=== PATIENT | male | born 1990 | race Caucasian/White ===

== ENCOUNTER 2017-07-25 16:37 | Emergency (ER) | payer BC ==
--- NOTE | 2017-07-25 17:06 | EDM.PDOC ---
ED HPI GENERAL MEDICAL PROBLEM - General Chief Complaint: Respiratory Problem Stated Complaint: SICK Time Seen by Provider: 07/25/17 17:01 Source of Information: Reports: Patient History Limitations: Reports: No Limitations - History of Present Illness INITIAL COMMENTS - FREE TEXT/NARRATIVE: HISTORY AND PHYSICAL: History of present illness: Patient is a 27-year-old male who presents to the emergency room with bilateral ear pain, sore throat and dry nonproductive cough times and weak. He states he has been using [id number] Mucinex and Tylenol without much relief. He denies any fever, chills, chest pain or shortness of breath. He denies any abdominal pain, nausea, vomiting, diarrhea or constipation. He is a daily smoker , 1 pack per day. Not received the influenza vaccine. Review of systems: As per history of present illness and below otherwise all systems reviewed and negative. Past medical history: As per history of present illness and as reviewed below otherwise noncontributory. Surgical history: As per history of present illness and as reviewed below otherwise noncontributory. Social history: No reported history of drug or alcohol abuse. Family history: As per history of present illness and as reviewed below otherwise noncontributory. Physical exam: General: Well-developed and well-nourished 27-year-old male. Alert and oriented. Nontoxic appearing and in no acute distress. HEENT: Atraumatic, normocephalic, pupils reactive, negative for conjunctival pallor or scleral icterus, mucous membranes moist, bilateral tympanic membranes are pinkish with dull light reflex, no bulging. Erythema noted to the posterior oropharynx without exudate, no patellar shifting. No lymphadenopathy, neck supple, nontender, trachea midline. Maxillary sinus tenderness bilaterally. Sinus pressure with bending his head forward. No drooling or trismus. No mastoid tenderness. Lungs: Clear to auscultation, breath sounds equal bilaterally, chest nontender. Dry nonproductive cough noted. Heart: S1S2, regular rate and rhythm Abdomen: Soft, nondistended, nontender. Negative for masses or hepatosplenomegaly. Negative for costovertebral tenderness. Pelvis: Stable nontender. Genitourinary: Deferred. Rectal: Deferred. Extremities: Atraumatic, negative for cords or calf pain. Neurovascular unremarkable. Neuro: Awake, alert, oriented. Cranial nerves II through XII unremarkable. Cerebellum unremarkable. Motor and sensory unremarkable throughout. Exam nonfocal. Notes: Will treat patient with Augmentin twice a day 10 days. Phenergan with codeine for nighttime use. Medication education was given. Encouraged him to quit smoking. Patient will follow up with his primary care provider next week. He denies any further questions at this time. Diagnostics: [] Therapeutics: [] Impression: Sinusitis Bronchitis Plan: 1. Please stop smoking. 2. Take your antibiotic as prescribed. Phenergan with codeine has been given to you for cough and occasional will cause drowsiness do not take it while driving her needing to be functioning outside of the house. You may take Tylenol and/or ibuprofen as needed for pain and fever management. 3. Follow-up with your primary caregiver next week. Return to the ED as needed and as discussed. Definitive disposition and diagnosis as appropriate pending reevaluation and review of above. Duration: Week(s): Generalized Pain Score (Numeric/FACES): 5 - Related Data Allergies Allergy/AdvReac Type Severity Reaction Status Date / Time No Known Allergies Allergy Verified 07/25/17 16:53 Past Medical History - Past Health History Medical/Surgical History: Denies Medical/Surgical History - Infectious Disease History Infectious Disease History: Reports: Chicken Pox Social & Family History - Family History Family Medical History: Noncontributory - Tobacco Use Smoking Status *Q: Current Every Day Smoker Years of Tobacco use: 12 Packs/Tins Daily: 1.5 - Caffeine Use Caffeine Use: Reports: Coffee, Energy Drinks, Soda - Alcohol Use Days Per Week of Alcohol Use: 0 - Recreational Drug Use Recreational Drug Use: No ED ROS GENERAL - Review of Systems Review Of Systems: ROS reveals no pertinent complaints other than HPI. ED EXAM, GENERAL - Physical Exam Exam: See Below (See dictation) Course - Vital Signs Last Recorded V/S: Last Vital Signs Temp 98.8 F 07/25/17 16:50 Pulse 101 H 07/25/17 16:50 Resp 18 07/25/17 16:50 BP 122/76 07/25/17 16:50 Pulse Ox 97 07/25/17 16:50 Departure - Departure Time of Disposition: 17:06 Disposition: Home, Self-Care 01 Clinical Impression: Bronchitis Sinusitis Qualifiers: Sinusitis location: maxillary Chronicity: acute Recurrence: non-recurrent Qualified Code(s): J01.00 - Acute maxillary sinusitis, unspecified - Discharge Information Instructions: Sinusitis, Adult, [id number], Acute Bronchitis, Adult, Easy-to- Read Referrals: PCP,None [Primary Care Provider] - Additional Instructions: The following information is given to patients seen in the emergency department who are being discharged to home. This information is to outline your options for follow-up care. We provide all patients seen in our emergency department with a follow-up referral. The need for follow-up, as well as the timing and circumstances, are variable depending upon the specifics of your emergency department visit. If you don't have a primary care physician on staff, we will provide you with a referral. We always advise you to contact your personal physician following an emergency department visit to inform them of the circumstance of the visit and for follow-up with them and/or the need for any referrals to a consulting specialist. The emergency department will also refer you to a specialist when appropriate. This referral assures that you have the opportunity for follow-up care with a specialist. All of these measure are taken in an effort to provide you with optimal care, which includes your follow-up. Under all circumstances we always encourage you to contact your private physician who remains a resource for coordinating your care. When calling for follow-up care, please make the office aware that this follow-up is from your recent emergency room visit. If for any reason you are refused follow-up, please contact the [facility] at and asked to speak to the emergency department charge nurse. [facility] [address] [place] [id number] 1. Please stop smoking. 2. Take your antibiotic as prescribed. Phenergan with codeine has been given to you for cough and occasional will cause drowsiness do not take it while driving her needing to be functioning outside of the house. You may take Tylenol and/or ibuprofen as needed for pain and fever management. 3. Follow-up with your primary caregiver next week. Return to the ED as needed and as discussed.
== END 2017-07-25 17:35 | disposition home or self-care (01) ==
LOC: MW.ED 16:37
DX: J40 Bronchitis, not specified as acute or chronic (principal); J01.00 Acute maxillary sinusitis, unspecified; F17.210 Nicotine dependence, cigarettes, uncomplicated
CPT/HCPCS: 99282; 99283

== ENCOUNTER 2018-10-29 19:42 | Day surgery (SDC) | payer BC ==
[~2018-10-29 19:42] MED LIST: cefOXitin 1 GM in Premix Bag 1 BAG IV SCH
[2018-10-29] MEDS ORDERED: Sodium Chloride 0.9% 1,000 ML IV ONE (19:48)
[2018-10-29] MEDS ORDERED: Sodium Chloride 0.9% 2.5 ML Syringe FLUSH PRN (19:48)
[2018-10-29] MEDS ORDERED: Sodium Chloride 0.9% 10 ML Syringe FLUSH PRN (19:48)
[2018-10-29] MEDS ORDERED: Aspirin 325 MG Tab PO ONE (19:50)
--- NOTE | 2018-10-29 19:50 | EDM.PDOC ---
ED HPI GENERAL MEDICAL PROBLEM - General Chief Complaint: Fever Stated Complaint: fever stomach & back pain Time Seen by Provider: 10/29/18 19:45 - History of Present Illness INITIAL COMMENTS - FREE TEXT/NARRATIVE: HISTORY AND PHYSICAL: History of present illness: Patient's a 28-year-old white male presents with concern of intermittent fever and lower abdominal pain 3 days he denies diarrhea denies trauma denies any chronic medical problems. Review of systems: As per history of present illness and below otherwise all systems reviewed and negative. Past medical history: As per history of present illness and as reviewed below otherwise noncontributory. Surgical history: As per history of present illness and as reviewed below otherwise noncontributory. Social history: No reported history of drug or alcohol abuse. Family history: As per history of present illness and as reviewed below otherwise noncontributory. Physical exam: HEENT: Atraumatic, normocephalic, pupils reactive, negative for conjunctival pallor or scleral icterus, mucous membranes moist, throat clear, neck supple, nontender, trachea midline. Lungs: Clear to auscultation, breath sounds equal bilaterally, chest nontender. Heart: S1S2, regular, negative for clicks, rubs, or JVD. Abdomen: Soft, nondistended, nonlocalized lower abdominal tenderness to deep palpation no rebound no guarding. Negative for masses or hepatosplenomegaly. Negative for costovertebral tenderness. Pelvis: Stable nontender. Genitourinary: Deferred. Rectal: Deferred. Extremities: Atraumatic, negative for cords or calf pain. Neurovascular unremarkable. Neuro: Awake, alert, oriented. Cranial nerves II through XII unremarkable. Cerebellum unremarkable. Motor and sensory unremarkable throughout. Exam nonfocal. Diagnostics: CBC CMP and lipase UA chest x-ray CT abdomen and pelvis Therapeutics: Saline 1 L bolus Tylenol 1 g by mouth Impression: #1 fever #2 abdominal pain Definitive disposition and diagnosis as appropriate pending reevaluation and review of above. - Related Data Allergies Allergy/AdvReac Type Severity Reaction Status Date / Time No Known Allergies Allergy Verified 10/29/18 19:50 Home Meds: Home Meds . [No Known Home Meds] 10/29/18 [History] Past Medical History - Past Health History Medical/Surgical History: Denies Medical/Surgical History - Infectious Disease History Infectious Disease History: Reports: Chicken Pox Social & Family History - Family History Family Medical History: Noncontributory - Caffeine Use Caffeine Use: Reports: Coffee, Energy Drinks, Soda ED ROS GENERAL - Review of Systems Review Of Systems: ROS reveals no pertinent complaints other than HPI. ED EXAM, GENERAL - Physical Exam Exam: See Below (See dictation) Course - Vital Signs Last Recorded V/S: Last Vital Signs Temp 38.6 C H 10/29/18 20:00 Pulse 112 H 10/29/18 19:50 Resp 18 10/29/18 19:50 BP 134/75 10/29/18 19:50 Pulse Ox 96 10/29/18 19:50 - Orders/Labs/Meds Orders: Active Orders 24 hr Category Date Time Status COMPREHENSIVE METABOLIC PN,CMP [CHEM] Stat Lab 10/29/18 19:47 Ordered CULTURE URINE [RM] Stat Lab 10/29/18 19:40 Received LIPASE [CHEM] Stat Lab 10/29/18 19:47 Ordered Sodium Chloride 0.9% [Normal Saline] 1,000 ml Med 10/29/18 19:48 Active IV STAT Sodium Chloride 0.9% [Saline Flush] Med 10/29/18 19:48 Active 10 ml FLUSH ASDIRECTED PRN Sodium Chloride 0.9% [Saline Flush] Med 10/29/18 19:48 Active 2.5 ml FLUSH ASDIRECTED PRN Saline Lock Insert [OM.PC] Stat Oth 10/29/18 19:47 Ordered Medication Orders Sodium Chloride (Normal Saline) 1,000 mls @ 999 mls/hr IV STAT ONE Stop: 10/29/18 20:48 Last Admin: 10/29/18 20:00 Dose: 999 mls/hr Sodium Chloride (Saline Flush) 10 ml FLUSH ASDIRECTED PRN PRN Reason: Keep Vein Open Sodium Chloride (Saline Flush) 2.5 ml FLUSH ASDIRECTED PRN PRN Reason: Keep Vein Open Labs: Laboratory Tests 10/29/18 10/29/18 10/29/18 Range/Units 19:40 19:47 19:50 WBC 12.19 H (4.0-11.0) K/uL RBC 4.68 (4.50-5.90) M/uL Hgb 14.7 (13.0-17.0) g/dL Hct 42.2 (38.0-50.0) % MCV 90.2 (80.0-98.0) fL MCH 31.4 (27.0-32.0) pg MCHC 34.8 (31.0-37.0) g/dL RDW Std Deviation 40.7 (28.0-62.0) fl RDW Coeff of Rebecca 12 (11.0-15.0) % Plt Count 235 (150-400) K/uL MPV 10.20 (7.40-12.00) fL Neut % (Auto) 87.9 H (48.0-80.0) % Lymph % (Auto) 7.1 L (16.0-40.0) % [place] % (Auto) 4.1 (0.0-15.0) % Eos % (Auto) 0.7 (0.0-7.0) % Baso % (Auto) 0.2 (0.0-1.5) % Neut # (Auto) 10.7 H (1.4-5.7) K/uL Lymph # (Auto) 0.9 (0.6-2.4) K/uL [place] # (Auto) 0.5 (0.0-0.8) K/uL Eos # (Auto) 0.1 (0.0-0.7) K/uL Baso # (Auto) 0.0 (0.0-0.1) K/uL Nucleated RBC % 0.0 /100WBC Nucleated RBCs # 0 K/uL INR 1.02 Urine Color DARK YELLOW Urine Appearance CLEAR Urine pH 6.0 (5.0-8.0) Ur Specific [place] 1.025 (1.001-1.035) Urine Protein TRACE H (NEGATIVE) mg/dL Urine Glucose (UA) NEGATIVE (NEGATIVE) mg/dL Urine Ketones 15 H (NEGATIVE) mg/dL Urine Occult Blood NEGATIVE (NEGATIVE) Urine Nitrite NEGATIVE (NEGATIVE) Urine Bilirubin SMALL H (NEGATIVE) Urine Ictotest POSITIVE Urine Urobilinogen 1.0 (<2.0) EU/dL Ur Leukocyte Esterase TRACE H (NEGATIVE) Urine RBC 0-1 (0-2/HPF) Urine WBC 5-8 (0-5/HPF) Ur Epithelial Cells OCCASIONAL (NONE-FEW) Urine Bacteria FEW (NEGATIVE) Urine Mucus LIGHT (NONE-MOD) Meds: Medications Generic Name Dose Route Start Last Admin Trade Name Freq PRN Reason Stop Dose Admin Sodium Chloride 1,000 mls @ 999 mls/hr 10/29/18 19:48 10/29/18 20:00 Normal Saline IV 10/29/18 20:48 999 mls/hr STAT ONE Administration Sodium Chloride 10 ml 10/29/18 19:48 Saline Flush FLUSH ASDIRECTED PRN Keep Vein Open Sodium Chloride 2.5 ml 10/29/18 19:48 Saline Flush FLUSH ASDIRECTED PRN Keep Vein Open Discontinued Medications Generic Name Dose Route Start Last Admin Trade Name Freq PRN Reason Stop Dose Admin Acetaminophen 1,000 mg 10/29/18 19:56 10/29/18 20:00 Tylenol Extra Strength PO 10/29/18 19:57 1,000 mg ONETIME ONE Administration Aspirin 975 mg 10/29/18 19:50 Aspirin PO 10/29/18 19:51 ONETIME ONE Departure - Departure Time of Disposition: 20:41 Disposition: Admitted As Inpatient 65 Condition: Good Clinical Impression: Appendicitis - Discharge Information Referrals: PCP,None [Primary Care Provider] - Forms: ED Department Discharge - My Orders Last 24 Hours: My Active Orders 10/29/18 19:40 CULTURE URINE [RM] Stat 10/29/18 19:47 COMPREHENSIVE METABOLIC PN,CMP [CHEM] Stat LIPASE [CHEM] Stat Saline Lock Insert [OM.PC] Stat 10/29/18 19:48 Sodium Chloride 0.9% [Normal Saline] 1,000 ml IV STAT Sodium Chloride 0.9% [Saline Flush] 10 ml FLUSH ASDIRECTED PRN Sodium Chloride 0.9% [Saline Flush] 2.5 ml FLUSH ASDIRECTED PRN - Assessment/Plan Last 24 Hours: My Active Orders 10/29/18 19:40 CULTURE URINE [RM] Stat 10/29/18 19:47 COMPREHENSIVE METABOLIC PN,CMP [CHEM] Stat LIPASE [CHEM] Stat Saline Lock Insert [OM.PC] Stat 10/29/18 19:48 Sodium Chloride 0.9% [Normal Saline] 1,000 ml IV STAT Sodium Chloride 0.9% [Saline Flush] 10 ml FLUSH ASDIRECTED PRN Sodium Chloride 0.9% [Saline Flush] 2.5 ml FLUSH ASDIRECTED PRN
[2018-10-29] MEDS ORDERED: Acetaminophen 500 MG Tab PO ONE (19:56)
--- NOTE | 2018-10-29 20:31 | CR ---
Indication: Fever Technique: Chest 1 view Comparison: None Findings/Impression: Cardiovascular and mediastinum: Heart size and vasculature are normal in caliber and appearance. Mediastinum is within normal limits. Lungs and pleural space: Lungs are clear. No sign of infiltrate or mass. No sign of pleural effusion. No pneumothorax. Bones and soft tissues: No significant findings. Dictated by Marisel Gomez MD @ Oct 29 2018 8:28PM Signed by Dr. Marisel Gomez @ Oct 29 2018 8:29PM
[2018-10-29 20:37] LABS: CHLORIDE,CL 100 mmol/L (98-107); SODIUM,NA 135 mmol/L (136-148)
--- NOTE | 2018-10-29 20:39 | CT ---
INDICATION: back and abdominal pain CT ABDOMEN AND PELVIS WITHOUT CONTRAST TECHNIQUE: Multidetector CT imaging was performed through the abdomen and pelvis without intravenous contrast administration. Coronal and sagittal reconstructions were generated. COMPARISON: None. FINDINGS: Lower chest: Lung bases are clear. Liver: Within normal limits. Gallbladder and bile ducts: No gallbladder wall thickening or calcified gallstones. No biliary dilation identified. Pancreas: Unremarkable. Spleen: Normal. Adrenals: No nodules or masses. Kidneys, ureters, and urinary bladder: Small nonobstructing stone in the lower pole of the left kidney. No ureteral stones or hydronephrosis. No bladder mass or definite wall thickening. Gastrointestinal tract: Normal caliber bowel without wall thickening. The distal appendix is abnormally enlarged and measures up to 13 millimeters in diameter with wall thickening and marked periappendiceal fat stranding, consistent with appendicitis. Vascular structures: Normal for age. Peritoneum: No free air, abscess, or significant free fluid. Lymph nodes: No pathologically enlarged nodes identified. Reproductive organs: No pelvic masses. Bones: Normal for age. IMPRESSION: 1. Acute appendicitis. No appendiceal perforation or abscess identified. 2. Small nonobstructing left intrarenal stone. NATHEN MIN MD [facility] Dictated by Gil Min MD @ 10/29/2018 8:37:08 PM Dictated by: Gil Min MD @ 10/29/2018 20:38:48 (Electronically Signed)
[2018-10-29] MEDS ORDERED: cefOXitin 2 GM in Premix Bag 1 BAG IV ONE (21:33)
--- NOTE | 2018-10-29 21:42 | PCM.SN ---
- Free Text/Narrative Note: pt seen, chart reviewed, acute appendicitis w 72 hrs pain, ct read dilated appendicitis 13 mm, w periappendicil stranding; will take pt to surgery on an urgent basis as pt's clinical conditions is impending perforation of acute appendicitis; rb dw pt, pt voiced understanding; [id number]
[2018-10-29] MEDS ORDERED: Lactated Ringers 1,000 ML IV SCH (21:45)
[2018-10-29] MEDS ORDERED: Bupivacaine 25%/EPINEPHrine/PF 30 ML ONE (21:51)
[2018-10-29] MEDS ORDERED: Midazolam 1 MG/ML 2 ML SDV ONE (21:56)
[2018-10-29] MEDS ORDERED: Propofol 200 MG/20 ML SDV ONE (21:56)
[2018-10-29] MEDS ORDERED: fentaNYL 250 MCG/5 ML SDV ONE (21:56)
[2018-10-29] MEDS ORDERED: Ondansetron 4 MG/2 ML SDV ONE (21:58)
[2018-10-29] MEDS ORDERED: Succinylcholine 200 MG/10 ML MDV ONE (21:58)
[2018-10-29] MEDS ORDERED: Rocuronium 100 MG/10 ML MDV ONE (21:58)
--- NOTE | 2018-10-29 22:07 | PCM.PREANE ---
Preanesthetic Assessment - Anesthesia/Transfusion/Family Hx Anesthesia History: Prior Anesthesia Without Reaction Family History of Anesthesia Reaction: No Transfusion History: No Prior Transfusion(s) Intubation History: Unknown - Review of Systems General: Fever, Fatigue Pulmonary: No Symptoms Cardiovascular: No Symptoms Gastrointestinal: Abdominal Pain, Decreased Appetite Neurological: No Symptoms Other: Reports: None - Physical Assessment NPO Status Date: 10/29/18 NPO Status Time: 12:00 Pulse: 89 O2 Sat by Pulse Oximetry: 97 Respiratory Rate: 18 Temperature: 101.5 F Vital Signs: Last Vital Signs Temp 100.1 F 10/29/18 20:56 Pulse 106 H 10/29/18 20:56 Resp 18 10/29/18 20:56 BP 118/61 10/29/18 20:56 Pulse Ox 97 10/29/18 20:56 Height: 6 ft Weight: 77.111 kg ASA Class: 2E Mental Status: Alert & Oriented x3 Airway Class: Mallampati = 2 Dentition: Reports: Normal Dentition Thyro-Mental Finger Breadths: 3 Mouth Opening Finger Breadths: 3 ROM/Head Extension: Full Lungs: Clear to Auscultation, Normal Respiratory Effort Cardiovascular: Regular Rate, Regular Rhythm - Lab Values: Laboratory Last Values WBC 12.19 K/uL (4.0-11.0) H 10/29/18 19:50 RBC 4.68 M/uL (4.50-5.90) 10/29/18 19:50 Hgb 14.7 g/dL (13.0-17.0) 10/29/18 19:50 Hct 42.2 % (38.0-50.0) 10/29/18 19:50 MCV 90.2 fL (80.0-98.0) 10/29/18 19:50 MCH 31.4 pg (27.0-32.0) 10/29/18 19:50 MCHC 34.8 g/dL (31.0-37.0) 10/29/18 19:50 RDW Std Deviation 40.7 fl (28.0-62.0) 10/29/18 19:50 RDW Coeff of Rebecca 12 % (11.0-15.0) 10/29/18 19:50 Plt Count 235 K/uL (150-400) 10/29/18 19:50 MPV 10.20 fL (7.40-12.00) 10/29/18 19:50 Neut % (Auto) 87.9 % (48.0-80.0) H 10/29/18 19:50 Lymph % (Auto) 7.1 % (16.0-40.0) L 10/29/18 19:50 [place] % (Auto) 4.1 % (0.0-15.0) 10/29/18 19:50 Eos % (Auto) 0.7 % (0.0-7.0) 10/29/18 19:50 Baso % (Auto) 0.2 % (0.0-1.5) 10/29/18 19:50 Neut # (Auto) 10.7 K/uL (1.4-5.7) H 10/29/18 19:50 Lymph # (Auto) 0.9 K/uL (0.6-2.4) 10/29/18 19:50 [place] # (Auto) 0.5 K/uL (0.0-0.8) 10/29/18 19:50 Eos # (Auto) 0.1 K/uL (0.0-0.7) 10/29/18 19:50 Baso # (Auto) 0.0 K/uL (0.0-0.1) 10/29/18 19:50 Nucleated RBC % 0.0 /100WBC 10/29/18 19:50 Nucleated RBCs # 0 K/uL 10/29/18 19:50 INR 1.02 10/29/18 19:47 Sodium 135 mmol/L (136-148) L 10/29/18 19:56 Potassium 3.8 mmol/L (3.5-5.1) 10/29/18 19:56 Chloride 100 mmol/L (98-107) 10/29/18 19:56 Carbon Dioxide 24.5 mmol/L (21.0-32.0) 10/29/18 19:56 BUN 13 mg/dL (7.0-18.0) 10/29/18 19:56 Creatinine 1.1 mg/dL (0.8-1.3) 10/29/18 19:56 Est Cr Clr Drug Dosing 108.07 mL/min 10/29/18 19:56 Estimated GFR (MDRD) > 60.0 ml/min 10/29/18 19:56 Glucose 115 mg/dL (74-106) H 10/29/18 19:56 Calcium 9.3 mg/dL (8.5-10.1) 10/29/18 19:56 Total Bilirubin 0.9 mg/dL (0.2-1.0) 10/29/18 19:56 AST 29 IU/L (15-37) 10/29/18 19:56 ALT 46 IU/L (14-63) 10/29/18 19:56 Alkaline Phosphatase 115 U/L (46-116) 10/29/18 19:56 Total Protein 7.9 g/dL (6.4-8.2) 10/29/18 19:56 Albumin 4.0 g/dL (3.4-5.0) 10/29/18 19:56 Globulin 3.9 g/dL (2.6-4.0) 10/29/18 19:56 Albumin/Globulin Ratio 1.0 (0.9-1.6) 10/29/18 19:56 Lipase 74 U/L (73-393) 10/29/18 19:56 Urine Color DARK YELLOW 10/29/18 19:40 Urine Appearance CLEAR 10/29/18 19:40 Urine pH 6.0 (5.0-8.0) 10/29/18 19:40 Ur Specific [place] 1.025 (1.001-1.035) 10/29/18 19:40 Urine Protein TRACE mg/dL (NEGATIVE) H 10/29/18 19:40 Urine Glucose (UA) NEGATIVE mg/dL (NEGATIVE) 10/29/18 19:40 Urine Ketones 15 mg/dL (NEGATIVE) H 10/29/18 19:40 Urine Occult Blood NEGATIVE (NEGATIVE) 10/29/18 19:40 Urine Nitrite NEGATIVE (NEGATIVE) 10/29/18 19:40 Urine Bilirubin SMALL (NEGATIVE) H 10/29/18 19:40 Urine Ictotest POSITIVE 10/29/18 19:40 Urine Urobilinogen 1.0 EU/dL (<2.0) 10/29/18 19:40 Ur Leukocyte Esterase TRACE (NEGATIVE) H 10/29/18 19:40 Urine RBC 0-1 (0-2/HPF) 10/29/18 19:40 Urine WBC 5-8 (0-5/HPF) 10/29/18 19:40 Ur Epithelial Cells OCCASIONAL (NONE-FEW) 10/29/18 19:40 Urine Bacteria FEW (NEGATIVE) 10/29/18 19:40 Urine Mucus LIGHT (NONE-MOD) 10/29/18 19:40 - Allergies Allergies/Adverse Reactions: Allergies Allergy/AdvReac Type Severity Reaction Status Date / Time No Known Allergies Allergy Verified 10/29/18 19:50 - Blood Blood Available: No Product(s) Available: None - Anesthesia Plan Pre-Op Medication Ordered: None - Acknowledgements Anesthesia Type Planned: General Anesthesia Pt an Appropriate Candidate for the Planned Anesthesia: Yes Alternatives and Risks of Anesthesia Discussed w Pt/Guardian: Yes Pt/Guardian Understands and Agrees with Anesthesia Plan: Yes Additional Comments: Pt. smokes 1-1.5ppd. PreAnesthesia Questionnaire - Past Health History Medical/Surgical History: Denies Medical/Surgical History - Infectious Disease History Infectious Disease History: Reports: Chicken Pox - SUBSTANCE USE Smoking Status *Q: Current Every Day Smoker Tobacco Use Within Last Twelve Months: Cigarettes Recreational Drug Use History: Yes - HOME MEDS Home Medications: Home Meds . [No Known Home Meds] 10/29/18 [History] - CURRENT (IN HOUSE) MEDS Current Meds: Current Medications Lactated Ringer's (Ringers, Lactated) 1,000 mls @ 150 mls/hr IV ASDIRECTED JAYNE Last Admin: 10/29/18 21:50 Dose: 150 mls/hr Sodium Chloride (Saline Flush) 10 ml FLUSH ASDIRECTED PRN PRN Reason: Keep Vein Open Sodium Chloride (Saline Flush) 2.5 ml FLUSH ASDIRECTED PRN PRN Reason: Keep Vein Open Discontinued Medications Acetaminophen (Tylenol Extra Strength) 1,000 mg PO ONETIME ONE Stop: 10/29/18 19:57 Last Admin: 10/29/18 20:00 Dose: 1,000 mg Aspirin (Aspirin) 975 mg PO ONETIME ONE Stop: 10/29/18 19:51 Fentanyl (Sublimaze) Confirm Administered Dose 250 mcg .ROUTE .STK-MED ONE Stop: 10/29/18 21:57 Sodium Chloride (Normal Saline) 1,000 mls @ 999 mls/hr IV STAT ONE Stop: 10/29/18 20:48 Last Admin: 10/29/18 20:00 Dose: 999 mls/hr Cefoxitin Sodium 2 gm/ Premix 50 mls @ 100 mls/hr IV ONETIME ONE Stop: 10/29/18 22:02 Last Admin: 10/29/18 21:50 Dose: 100 mls/hr Bupivacaine HCl/Epinephrine Bitart (Sensorc Mpf 0.25%-Epi [id number]) Confirm Administered Dose 30 mls @ as directed .ROUTE .STK-MED ONE Stop: 10/29/18 21:52 Lidocaine HCl (Xylocaine-Mpf 1%) Confirm Administered Dose 5 mls @ as directed .ROUTE .STK-MED ONE Stop: 10/29/18 21:59 Midazolam HCl (Versed 1 Mg/Ml) Confirm Administered Dose 2 mg .ROUTE .STK-MED ONE Stop: 10/29/18 21:57 Ondansetron HCl (Zofran) Confirm Administered Dose 4 mg .ROUTE .STK-MED ONE Stop: 10/29/18 21:59 Propofol (Diprivan 20 Ml) Confirm Administered Dose 200 mg .ROUTE .STK-MED ONE Stop: 10/29/18 21:57 Rocuronium [place] (Zemuron) Confirm Administered Dose 100 mg .ROUTE .STK-MED ONE Stop: 10/29/18 21:59 Succinylcholine Chloride (Quelicin) Confirm Administered Dose 200 mg .ROUTE .STK -MED ONE Stop: 10/29/18 21:59
[2018-10-29] MEDS ORDERED: Phenylephrine/Normal Saline 100 MCG/ML 10 ML Syringe ONE (22:39)
[2018-10-29] MEDS ORDERED: Sodium Chloride 0.9% 20 ML ONE (22:49)
[2018-10-29] MEDS ORDERED: ePHEDrine 50 MG/ML SDV ONE (22:49)
[2018-10-29] MEDS ORDERED: Meperidine PF 25 MG/ML Syringe IM ONE (23:09)
[2018-10-29] MEDS ORDERED: Metoclopramide 10 MG/2 ML SDV IVPUSH ONE (23:09)
[2018-10-29] MEDS ORDERED: fentaNYL 100 MCG/2 ML SDV IVPUSH PRN (23:09)
[2018-10-29] MEDS ORDERED: HYDROmorphone 1 MG/ML Syringe IVPUSH ONE (23:09)
[2018-10-29] MEDS ORDERED: Dexamethasone 4 MG/ML 5 ML MDV ONE (23:27)
[2018-10-29] MEDS ORDERED: Glycopyrrolate 0.2 MG/ML SDV ONE (23:29)
[2018-10-29] MEDS ORDERED: Neostigmine Methylsulfate 1 MG/ML 5 ML Syringe ONE (23:29)
--- NOTE | 2018-10-29 23:43 | PCM.OPNOTE ---
- General Post-Op/Procedure Note Date of Surgery/Procedure: 10/29/18 Operative Procedure(s): lap appendectomy w surgicell placement Findings: large amt of exudatae at distal 1/2 appendix cw appendicitis suppurativa; gross perf not observed; [id number] Pre Op Diagnosis: acute appendicitis Post-Op Diagnosis: Same Anesthesia Technique: General ET Tube Primary Surgeon: Samir Wade Pathology: sent Complications: None Condition: Good
[2018-10-29] MEDS ORDERED: Ondansetron 4 MG/2 ML SDV IVPUSH PRN (23:45)
[2018-10-29] MEDS ORDERED: Acetaminophen/oxyCODONE 325-5 MG Tab PO PRN (23:45)
--- NOTE | 2018-10-30 00:17 | PCM48HPAN ---
Post Anesthesia Note - EVALUATION WITHIN 48HRS OF ANESTHETIC Vital Signs in Normal Range: Yes Patient Participated in Evaluation: Yes Respiratory Function Stable: Yes Airway Patent: Yes Cardiovascular Function Stable: Yes Hydration Status Stable: Yes Pain Control Satisfactory: Yes Nausea and Vomiting Control Satisfactory: Yes Pulse Rate: 89 SaO2: 98 Resp Rate: 16 Temperature: 101.5 F Blood Pressure: 102/42
[2018-10-30] MEDS: Lactated Ringers 1,000 ML IV SCH ×2 (00:43→06:12)
[2018-10-30] MEDS: Albuterol 0.083% 2.5 MG/3 ML Neb Soln NEB SCH ×3 (01:35→11:16)
--- NOTE | 2018-10-30 03:24 | OR ---
SURGEON: Samir Wade MD DATE OF PROCEDURE: 10/29/2018 PREOPERATIVE DIAGNOSIS: Acute appendicitis. POSTOPERATIVE DIAGNOSIS: Appendicitis suppurativa. PROCEDURE PERFORMED: Laparoscopic appendectomy. COMPLICATION: None. FINDINGS: The appendix is totally sucked down into the terminal ileum and the colon and omentum into like a ball, with severe exudate, large amount of exudate at the distal half of the appendix. Gross perforation is not observed. PROCEDURE IN DETAIL: The patient was taken to the operating room and placed in the supine position. Following induction of general endotracheal anesthesia, the patient's abdomen was prepped and draped in the sterile fashion. A time-out has been called. The patient was identified. The procedure was identified. The antibiotics were identified. The procedure then proceeded. The abdomen was prepped and draped in a standard fashion. After assessment of appropriate landmarks, a 12 millimeter trocar was inserted supraumbilically using Optiview and pneumoperitoneum was then achieved. This was followed with placement of 5 millimeter port in the right upper quadrant and another 5 millimeter port infraumbilically. The camera was inserted supraumbilical site and two laparoscopic Judy retractors were then inserted through the other two sites. Following the cecum, the appendix was located. The appendix was then lifted up, and using a GI stapler the appendix was amputated at the base. And using the GI stapler, the mesoappendix was then amputated. The appendix was retrieved by an endoscopic bag and sent for pathologist. This was then followed by re-insertion of the camera to examine the staple line, and hemostasis. The trocars were then removed. The umbilical site was closed with 2-0 Vicryl. Intraoperative findings as dictated above. The closure was with skin humberto on top of the Vicryl instead of Dermabond. The patient was then awakened, extubated, and transferred to the recovery room in hemodynamically stable condition. Prior to closing, sponge count and instrument count was correct. Dr. Wade was present throughout the whole procedure. As always, thank you for the kind referral. ROSEANN / XAVIER /[id number]
[2018-10-30] MEDS ORDERED: cefOXitin 1 GM in Premix Bag 1 BAG IV ONE (09:00)
--- NOTE | 2018-10-30 09:34 | CONS ---
DATE OF CONSULTATION: 10/29/2018 DATE OF : 1990 PRIMARY CARE PHYSICIAN: None PCP This is a consult from Dr. Patricio, ER provider. CONCERNING QUESTION: Acute appendicitis. HISTORY OF PRESENT ILLNESS: The patient is 28 years old gentleman, complaining of 72 hours of acute onset of periumbilical pain, subsequently migrated to the right lower quadrant. Seeking help in the emergency room. CAT scan showed dilated appendix with periappendiceal fat and read it as acute appendicitis. Surgery was then consulted. The patient denied prior episode. Denies fever. PAST MEDICAL HISTORY: Significant for no diabetes, CA, CVA, or hypertension. PAST SURGICAL HISTORY: None. ALLERGIES: Please refer to nursing notes for details. MEDICATIONS: Please refer to nursing notes for details. REVIEW OF SYSTEMS: Same as history of present illness. FAMILY HISTORY: Noncontributory. PHYSICAL EXAMINATION: GENERAL: Gentleman holding his babies and interacting appropriately with the examination doctor. HEENT: Normocephalic and atraumatic. Sclerae anicteric. LUNGS: Clear to auscultation. HEART: Regular rate and rhythm. ABDOMEN: Soft, nondistended. No pulsating tender midline abdominal structure. No surgical scar. Exquisite tenderness in the right lower quadrant. No rebound tenderness. No Rovsing sign. LABORATORY DATA: Upon consultation, white count is 12. CAT scan as dictated above. IMPRESSION: Acute appendicitis 72 hours along the course already and could even rupture at any time. Most of the appendices are ruptured in 72 hours. We will take the patient to the operating room on an urgent basis. Plan has been communicated to the nursing construction supervisor and the Anesthesiology team. The patient will get some IV antibiotic, get OR consent, put on antibiotic and proceed with surgery. The patient voiced understanding. Risks and benefits have been discussed and postop course has been discussed. As always, thank you for the kind referral. ROSEANN / XAVIER /[id number]
--- NOTE | 2018-10-30 10:54 | PCM.POSTAN ---
POST ANESTHESIA ASSESSMENT - MENTAL STATUS Mental Status: Oriented - RESPIRATORY Respiratory Status: Respiratory Rate WNL, Airway Patent, O2 Saturation Stable - CARDIOVASCULAR CV Status: Pulse Rate WNL, Blood Pressure Stable - GASTROINTESTINAL GI Status: No Symptoms - POST OP HYDRATION Hydration Status: Adequate & Stable
== END 2018-10-30 13:24 | disposition home or self-care (01) ==
LOC: MW.ED 19:42 → MW.SDS 21:33 → MW.MS 22:48 → MW.SDS 10-30 13:24
PROVIDERS: ATTEND Surgery
DX: K35.80 Unspecified acute appendicitis (principal); F17.210 Nicotine dependence, cigarettes, uncomplicated
CPT/HCPCS: 00840; 71045; 71045-26; 74176; 74176-26; 80053; 81001; 83690; 85025; 85610; 87086; 94640; 96361; 96365; 96368; 99284; 99285-25; A4217; A9270-GY; C1776; J0330; J0694; J1100; J2001; J2250; J2370; J2405; J2704; J3010; J3490; J7040; J7120